=== PATIENT | male | born 1960 | race Caucasian/White ===

== ENCOUNTER 2016-11-20 19:19 | Emergency (ER) | payer MEDICAID, OTHER ==
[~2016-11-20] VITALS: Ht 160 cm; Wt 54.5 kg
[2016-11-20 19:39] VITALS: Ht 160 cm; Wt 54.5 kg
[2016-11-20] MEDS ORDERED: PANTOPRAZOLE 40 MG INJ IV STA (20:24)
[2016-11-20] MEDS ORDERED: ONDANSETRON 4 MG INJ IV STA (20:24)
[2016-11-20] MEDS ORDERED: LORAZEPAM 2 MG INJ IV ONE ×2 (20:30→22:30)
[2016-11-20 20:39] LABS: ABNORMAL IP MESSAGE 1; BASOPHIL # 0.1 10^3/ul (0.0-0.1); BASOPHILS % 1.4 % (0.0-2.0); EOSINOPHILS % 0.2 % (0.0-7.0); HEMATOCRIT 38.8 % (42.0-52.0); HEMOGLOBIN 13.6 g/dl (14.0-18.0); LYMPHOCYTES # 0.4 10^3/ul (0.8-2.9); LYMPHOCYTES % 6.9 % (15.0-51.0); MEAN CORPUSCULAR HEMOGLOBIN 33.7 pg (29.0-33.0); MEAN CORPUSCULAR HGB CONC 35.1 g/dl (32.0-37.0); MEAN CORPUSCULAR VOLUME 96.3 fl (82.0-101.0); MEAN PLATELET VOLUME 10.7 fl (7.4-10.4); MONOCYTE # 0.5 10^3/ul (0.3-0.9); MONOCYTES % 9.1 % (0.0-11.0); NEUTROPHIL # 4.2 10^3/ul (1.6-7.5); NEUTROPHILS % 82.2 % (39.0-77.0); PLATELET COUNT 66 10^3/UL (140-415); POSITIVE DIFF @See below; RED BLOOD COUNT 4.03 10^6/ul (4.70-6.10); RED CELL DISTRIBUTION WIDTH 14.8 % (11.5-14.5); WHITE BLOOD COUNT 5.1 10^3/ul (4.8-10.8)
[2016-11-20 20:43] LABS: INR 1.06; PROTIME 13.8 Sec (12.2-14.2); PT RATIO 1.1
[2016-11-20 20:44] LABS: PARTIAL THROMBOPLASTIN TIME 30.9 Sec (25.0-35.0)
[2016-11-20 20:48] LABS: ALANINE AMINOTRANSFERASE 80 IU/L (13-69); ALBUMIN 4.3 g/dl (3.3-4.9); ALBUMIN/GLOBULIN RATIO 0.89; ALKALINE PHOSPHATASE 349 IU/L (42-121); ANION GAP 16 (8-16); ASPARTATE AMINO TRANSFERASE 236 IU/L (15-46); BLOOD UREA NITROGEN 5 mg/dl (7-20); CALCIUM 8.9 mg/dl (8.4-10.2); CARBON DIOXIDE 24 mmol/L (21-31); CHLORIDE 94 mmol/L (97-110); CREATININE 0.52 mg/dl (0.61-1.24); GLUCOSE 158 mg/dl (70-220); POTASSIUM 3.3 mmol/L (3.5-5.1); SODIUM 131 mmol/L (135-144); TOTAL PROTEIN 9.1 g/dl (6.1-8.1)
[2016-11-20 21:01] LABS: TROPONIN-I < 0.012 ng/ml (0.00-0.12)
--- NOTE | 2016-11-20 21:28 | RADRPT ---
PROCEDURE: XR Chest 1 View. CLINICAL INDICATION: Chest pain, possible upper GI bleed. TECHNIQUE: AP view of the chest was obtained. COMPARISON: May 31, 2013 FINDINGS: The heart size is within normal limits. Calcified atherosclerosis is noted in the aorta. Elevated r ight hemidiaphragm is identified. No consolidations are identified. No pneumothorax is seen. [place] structures are intact. IMPRESSION: Calcified atherosclerosis in the aorta. Elevated right hemidiaphragm. Clear lungs. RPTAT: AA .Ashish Hernandez MD, MD Date Time Electronically viewed and signed by .Ashish Hernandez MD, on 11/20/2016 21:28 .P/
[2016-11-20] MEDS ORDERED: POTASSIUM CHLORIDE 20 MEQ POWDER FOR ORAL SOLN PO ONE (22:30)
[2016-11-20 22:33] VITALS: TEMP 98.3
[2016-11-20] MEDS ORDERED: SOD CHLORIDE 0.9% 1,000 ML IV STA (23:20)
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
[2016-11-21] MEDS ORDERED: FAMO-96 PO (00:30)
[2016-11-21] MEDS ORDERED: CHLO25CA9 PO (00:30)
[2016-11-21] MEDS ORDERED: ONDA4TAB14 PO (00:30)
[2016-11-21 04:36] VITALS: BP 120/84; PULSE 89; RESP 22
== END 2016-11-21 04:40 | disposition home or self-care (01) ==
LOC: E/R 19:19
DX: R07.89 Other chest pain (principal); K92.0 Hematemesis; F10.230 Alcohol dependence with withdrawal, uncomplicated; Z87.891 Personal history of nicotine dependence
CPT/HCPCS: 36415; 71010; 80053; 83690; 84484; 85025; 85610; 85730; 86850; 86900; 86901; 93005; 96374; 96375; 96376; C9113; J2060; J2405; J7030; Z7502; Z7610

== ENCOUNTER 2017-05-22 18:26 | Emergency (ER) | END 2017-05-22 19:03 | disposition home or self-care (01) ==

== ENCOUNTER 2018-01-04 16:16 | Emergency (ER) | END 2018-01-04 21:05 | disposition home or self-care (01) ==

== ENCOUNTER 2018-01-05 09:40 | Emergency (ER) | END 2018-01-05 19:34 | disposition home or self-care (01) ==

== ENCOUNTER 2018-02-27 12:20 | Inpatient (IN) | END 2018-03-03 11:52 | disposition home or self-care (01) | DRG 872 ==

== ENCOUNTER 2018-03-15 08:07 | Emergency (ER) | payer MEDICAID ==
[~2018-03-15] VITALS: Wt 52.1 kg
[2018-03-15] MEDS ORDERED: ONDANSETRON 4 MG INJ IV STA (08:22)
[2018-03-15] MEDS ORDERED: morphine 4 MG/ML VIAL IV STA (08:22)
[2018-03-15] MEDS ORDERED: ONDA4TAB14 PO (10:18)
[2018-03-15] MEDS ORDERED: IBUP-1542 PO (10:18)
--- NOTE | 2018-03-15 10:21 | ERD ---
ER Documentation Chief Complaint Chief Complaint AP WITH HEADACHE AND FEVER X 3 DAYS HPI Patient is a 57-year-old male who presents with abdominal pain. He has had abdominal pain for the past 3 days. He also complains of fever and headache. The fever was subjective as he did not take it himself at home. He complains of left leg pain as well. The pain in his abdomen has been diffuse and constant. He has had no treatment as of yet. The patient has a history of the similar type pain 3-4 weeks ago. Upon review of old medical records this is the patient's 13th visit to the ER since 2008. Review of the emergency department information exchange system shows visits to 2 separate emergency departments. He has a primary doctor but does not know the name. ROS All systems reviewed and are negative except as per history of present illness. Medications Home Meds Active Scripts Ondansetron (Ondansetron Odt) 4 Mg Tab.rapdis, 4 MG PO Q6H PRN for NAUSEA AND/OR VOMITING, #10 TAB Prov:VICTOR M ARAUJO MD 03/15/18 Ibuprofen* (Motrin*) 600 Mg Tab, 600 MG PO Q6H PRN for PAIN AND OR ELEVATED TEMP, #30 TAB Prov:VICTOR M ARAUJO MD 03/15/18 Allergies Allergies: Coded Allergies: No Known Allergy (Unverified , 02/27/18) PMhx/Soc History of Surgery: Yes (HERNIA REPAIR,RIGHT SIDE.LEFT EYE SURGERY) Anesthesia Reaction: Yes Hx Neurological Disorder: No Hx Respiratory Disorders: No Hx Cardiac Disorders: No Hx Psychiatric Problems: No Hx Miscellaneous Medical Probl: Yes (ALCOHOL ABUSE, LIVER CIRRHOSIS) Hx Alcohol Use: Yes Hx Substance Use: No Hx Tobacco Use: No Smoking Status: Never smoker FmHx Family History: No diabetes Physical Exam Vitals Vital Signs Date Temp Pulse Resp B/P (MAP) Pulse Ox O2 O2 Flow FiO2 Time Delivery Rate 03/15/18 90 14 117/78 99 Room Air 10:28 (91) 03/15/18 93 124/85 100 Room Air 08:48 (98) 03/15/18 98.5 102 16 145/80 99 08:12 (101) Physical Exam Const: No acute distress Head: Atraumatic Eyes: Normal Conjunctiva ENT: Normal External Ears, Nose and Mouth. Neck: Full range of motion. No meningismus. Resp: Clear to auscultation bilaterally Cardio: Regular rate and rhythm, no murmurs Abd: Soft, epigastric tenderness to palpation without rebound or guarding Skin: No petechiae or rashes Back: No midline or flank tenderness Ext: No cyanosis, or edema Neur: Awake and alert Psych: Normal Mood and Affect Result Diagram: 03/15/18 0825 03/15/18 0825 Results 24 hrs Laboratory Tests Test 03/15/18 08:25 White Blood Count 3.4 10^3/ul Red Blood Count 3.53 10^6/ul Hemoglobin 11.1 g/dl Hematocrit 32.7 % Mean Corpuscular Volume 92.6 fl Mean Corpuscular Hemoglobin 31.4 pg Mean Corpuscular Hemoglobin Concent 33.9 g/dl Red Cell Distribution Width 15.8 % Platelet Count 57 10^3/UL Mean Platelet Volume 12.2 fl Immature Granulocytes % 0.300 % Neutrophils % 52.9 % Lymphocytes % 31.6 % Monocytes % 11.3 % Eosinophils % 2.4 % Basophils % 1.5 % Nucleated Red Blood Cells % 0.0 /100WBC Immature Granulocytes # 0.010 10^3/ul Neutrophils # 1.8 10^3/ul Lymphocytes # 1.1 10^3/ul Monocytes # 0.4 10^3/ul Eosinophils # 0.1 10^3/ul Basophils # 0.1 10^3/ul Nucleated Red Blood Cells # 0.0 10^3/ul Urine Color YELLOW Urine Clarity CLEAR Urine pH 7.0 Urine Specific [place] 1.014 Urine Ketones NEGATIVE mg/dL Urine Nitrite NEGATIVE mg/dL Urine Bilirubin NEGATIVE mg/dL Urine Urobilinogen 2+ mg/dL Urine Leukocyte Esterase NEGATIVE Raul/ul Urine Microscopic RBC 3 /HPF Urine Microscopic WBC 0 /HPF Urine Hemoglobin 1+ mg/dL Urine Glucose NEGATIVE mg/dL Urine Total Protein NEGATIVE mg/dl Sodium Level 139 mmol/L Potassium Level 3.4 mmol/L Chloride Level 107 mmol/L Carbon Dioxide Level 21 mmol/L Anion Gap 11 Blood Urea Nitrogen 7 mg/dl Creatinine 0.44 mg/dl Est Glomerular Filtrat Rate mL/min > 60 mL/min Glucose Level 114 mg/dl Calcium Level 8.9 mg/dl Total Bilirubin 1.7 mg/dl Direct Bilirubin 0.00 mg/dl Indirect Bilirubin 1.7 mg/dl Aspartate Amino Transf (AST/SGOT) 169 IU/L Alanine Aminotransferase (ALT/SGPT) 42 IU/L Alkaline Phosphatase 415 IU/L Troponin I < 0.012 ng/ml Total Protein 9.2 g/dl Albumin 3.7 g/dl Globulin 5.50 g/dl Albumin/Globulin Ratio 0.67 Lipase 147 U/L Current Medications Medications Dose Sig/Jayesh Start Time Status Last (Trade) Ordered Route PRN Stop Time Admin Dose Reason Admin Morphine 4 mg ONCE STAT 03/15/18 DC 03/15/18 Sulfate IV 08:22 03/15/18 08:38 (morphine) 08:23 Ondansetron 4 mg ONCE STAT 03/15/18 DC 03/15/18 HCl (Zofran IV 08:22 03/15/18 08:39 Inj) 08:23 Procedures/MDM EKG read by me: Rate/Rhythm: Regular rate and rhythm at a rate of 95 Intervals: Normal Impression: No evidence of ischemia or arrhythmia Ultrasound of the gallbladder normal per radiology. Patient is a 57-year-old male who presents with abdominal pain. Laboratory studies were unremarkable and ultrasound of the gallbladder was negative. EKG shows no signs of ischemia or arrhythmia. At this point I doubt appendicitis, cholecystitis, pancreatitis, or bowel obstruction. I believe outpatient management is appropriate at this time but the patient will need close follow-up with his primary doctor within 24-48 hours. The patient can return for any worsening symptoms. He was given copies of laboratory studies and ultrasound report prior to discharge. Departure Diagnosis: Primary Impression: Abdominal pain Abdominal location: epigastric Qualified Codes: R10.13 - Epigastric pain Condition: Fair Patient Instructions: Abdominal Pain Referrals: Your doctor Additional Instructions: Llame al doctor MAANA y alissa carol MIC PARA DENTRO DE 1-2 BENSON.Dgale a la secretaria que nosotros le instruimos hacer esta mic.Avise o llame si parson condicin se empeora antes de la mic. Regresa aqui si peor o no mejor. VICTOR M ARAUJO MD Mar 15, 2018 10:21
[2018-03-15 10:28] VITALS: BP 117/78; PULSE 90; RESP 14
== END 2018-03-15 10:45 | disposition home or self-care (01) ==
LOC: E/R 08:07
DX: R10.13 Epigastric pain (principal)
CPT/HCPCS: 36415; 76705; 80053; 81001; 83690; 84484; 85025; 93005; 96374; 96375; J2270; J2405; Z7502

== ENCOUNTER 2018-04-10 09:22 | Emergency (ER) | payer MEDICAID ==
[~2018-04-10] VITALS: Ht 152.4 cm; Wt 55.6 kg
[~2018-04-10 09:22] MED LIST: IBUP-1542 PO; ONDA4TAB14 PO
[2018-04-10 09:25] VITALS: BP 143/78; PULSE 116; RESP 18; Ht 152.4 cm; Wt 55.6 kg
[2018-04-10] MEDS ORDERED: SODI126M NASAL (09:52)
[2018-04-10] MEDS ORDERED: IBUP-1542 PO (09:52)
[2018-04-10] MEDS ORDERED: GUAI-637 PO (09:52)
--- NOTE | 2018-04-10 10:01 | ERD ---
ER Documentation Chief Complaint Chief Complaint cough & generalize body aches HPI 44-year-old male complaining of cough and body ache times 3 days. Patient states that he had a fever of 102 degrees at the onset of symptoms. But the fever has since resolved. He took Tylenol this morning, but did not improve his body ache. Patient reports one episode of vomiting and 3 episodes diarrhea since the onset of the symptoms. He had influenza vaccine in February 2018 while he was hospitalized. Patient has history of chronic epigastric pain, and reports epigastric pain for 4-5 days ago, before the onset of his current symptoms. But the abdominal pain has since resolved. Denies shortness of hamida th. Denies other past medical history. Patient states that he has stopped drinking alcohol for the past 6 months. ROS All systems reviewed and are negative except as per history of present illness. Medications Home Meds Active Scripts Guaifenesin* (Robitussin*) 100 Mg/5 Ml Syrup, 200 MG PO Q4H PRN for COUGH, #120 ML Prov:SYLVAIN SLOAN. COMMERCIAL DRIVER[employer]S LICENSE DRIVER 04/10/18 Sodium Chloride (Saline Nasal Mist) 126 Ml Mist, 2 SPRAY NASAL Q2H PRN for NASAL CONGESTION, #1 BOTTLE Prov:SYLVAIN SLOAN. COMMERCIAL DRIVER'S LICENSE DRIVER 04/10/18 Ibuprofen* (Motrin*) 600 Mg Tab, 600 MG PO Q6H PRN for PAIN AND OR ELEVATED TEMP, #30 TAB Prov:SYLVAIN SLOAN. COMMERCIAL DRIVER'S LICENSE DRIVER 04/10/18 Ondansetron (Ondansetron Odt) 4 Mg Tab.rapdis, 4 MG PO Q6H PRN for NAUSEA AND/OR VOMITING, #10 TAB Prov:VICTOR M ARAUJO MD 03/15/18 Ibuprofen* (Motrin*) 600 Mg Tab, 600 MG PO Q6H PRN for PAIN AND OR ELEVATED TEMP, #30 TAB Prov:VICTOR M ARAUJO MD 03/15/18 Allergies Allergies: Coded Allergies: No Known Allergy (Unverified , 02/27/18) PMhx/Soc History of Surgery: Yes (HERNIA REPAIR,RIGHT SIDE.LEFT EYE SURGERY) Anesthesia Reaction: Yes Hx Neurological Disorder: No Hx Respiratory Disorders: No Hx Cardiac Disorders: No Hx Psychiatric Problems: No Hx Miscellaneous Medical Probl: Yes (ALCOHOL ABUSE, LIVER CIRRHOSIS) Hx Alcohol Use: Yes Hx Substance Use: No Hx Tobacco Use: No Physical Exam Vitals Vital Signs Date Temp Pulse Resp B/P (MAP) Pulse Ox O2 O2 Flow FiO2 Time Delivery Rate 04/10/18 99.0 116 18 143/78 99 09:25 (99) Physical Exam General: Well-developed, disheveled appearance, conscious and coherent, in no distress Skin: Warm and dry without rash, good texture and turgor Head: Normocephalic without evidence of trauma Nose/Face: Nasal congestion Mouth/throat: Mucous membranes are moist. Posterior pharynx clear without erythema or exudates Neck: Supple without meningismus or adenopathy. Carotids are equal. Trachea midline. No bruits or JVD Chest: Normal AP diameter. Good expansion without retractions. Nontender. Lungs are clear to auscultate bilaterally with good tidal volume Heart: Regular rate and rhythm. No murmur, rub, or gallops heard Abdomen: Soft, mild epigastric tenderness without masses, guarding, or rebound. Bowel sounds are active. No hepatosplenomegaly Back: Without spinal or CVA tenderness xtremities: Full range of motion. Good strength bilaterally. No erythema, ecchymosis, or edema. Peripheral pulses are intact. Sensation intact Neuro: Alert and oriented 4, GCS 15. Procedures/MDM Patient is afebrile, in no respiratory distress. Lungs are clear to auscultate. I doubt that patient has pneumonia or bronchitis. Patient has mild epigastric tenderness on palpation. I doubt acute appendicitis, cholecystitis, bowel obstruction or other acute abdomen. Patient's symptoms is consistent with that of viral syndrome, although I cannot completely rule out influenza. Patient does not have any active vomiting, is able to maintain by mouth fluid intake. Patient does not show any sign of dehydration. Patient appears to be disheveled, upon questioning him as is being homeless. Social work consult ordered to provide patient with homeless resources before discharge. Patient appears well, stable for discharge and outpatient management. Medical decision making shared with patient and family. Education provided to patient and family. Patient and family expressed understanding of the plan. Medications on discharge: Ibuprofen, saline nasal mist, Robitussin. Follow-up: Primary care provider in 2-3 days or return to ED if worse. Disclaimer: Inadvertent spelling and grammatical errors are likely due to EHR/dictation software use and do not reflect on the overall quality of patient care. Also, please note that the electronic time recorded on this note does not necessarily reflect the actual time of the patient encounter. Departure Diagnosis: Primary Impression: Influenza-like symptoms Condition: Stable Patient Instructions: Influenza (Adult) Referrals: [facility] YOU HAVE RECEIVED A MEDICAL SCREENING EXAM AND THE RESULTS INDICATE THAT YOU DO NOT HAVE A CONDITION THAT REQUIRES URGENT TREATMENT IN THE EMERGENCY DEPARTMENT. FURTHER EVALUATION AND TREATMENT OF YOUR CONDITION CAN WAIT UNTIL YOU ARE SEEN IN YOUR DOCTORS OFFICE WITHIN THE NEXT 1-2 DAYS. IT IS YOUR RESPONSIBILITY TO MAKE AN APPOINTMENT FOR FOLOW-UP CARE. IF YOU HAVE A PRIMARY DOCTOR --you should call your primary doctor and schedule an appointment IF YOU DO NOT HAVE A PRIMARY DOCTOR YOU CAN CALL OUR PHYSICIAN REFERRAL HOTLINE AT IF YOU CAN NOT AFFORD TO SEE A PHYSICIAN YOU CAN CHOSE FROM THE FOLLOWING [facility] [address] [facility]. [facility] [address] [facility] [facility] [address] [facility] [facility] [address] [facility]. [facility] [address] [facility] [facility]. [address] Additional Instructions: Call your primary care doctor TOMORROW for an appointment during the next 2-3 days.See the doctor sooner or return here if your condition worsens before your appointment time. SYLVAIN SLOAN NP Apr 10, 2018 10:01
--- NOTE | 2018-04-10 10:29 | NUR ---
SS Note: Consult Pt is a 57YO male seen in ER fast track for flu-like symptoms. HOSPITAL INSURANCE CLERK received consult to address homeless discharge. Pt is A&O x 4, is currently wearing brand new sweatshirt, sweatpants, baseball cap, socks and shoes appearing to have been provided by ER. Pt states he was living with a friend on their couch, but friend is currently not in town. Pt states he has been homeless since being evicted from apartment 3 months ago d/t not being able to afford the rent. Pt states he has a daughter and son in the [place] area, but he is not able to go there and they do not appear to be a a source of support for him. Pt receives [employer] and food stamps. Pt has cell phone with him, as well as bag of belongings that appear dry and well-kept. Pt is familiar with [facility] and [facility]. HOSPITAL INSURANCE CLERK provided pt with winter residential list as well as bus token. Pt has been given prescriptions and follow-up medical plan. HOSPITAL INSURANCE CLERK to remain available as needed.
== END 2018-04-10 10:26 | disposition home or self-care (01) ==
LOC: FTE 09:22
DX: R05 Cough (principal); R40.2412 Glasgow coma scale score 13-15, at arrival to emergency department; R52 Pain, unspecified
CPT/HCPCS: 99283

== ENCOUNTER 2018-04-28 16:25 | Emergency (ER) | payer MEDICAID ==
[~2018-04-28] VITALS: Wt 56.5 kg
[~2018-04-28 16:25] MED LIST changes: +GUAI-637 PO; +SODI126M NASAL
[2018-04-28] MEDS ORDERED: KETOROLAC 30 MG INJ IV STA (17:51)
[2018-04-28] MEDS ORDERED: SOD CHLORIDE 0.9% 1,000 ML IV STA (17:51)
[2018-04-28 20:47] VITALS: BP 122/74; PULSE 101; RESP 16
[2018-04-28] MEDS ORDERED: IBUP-1982 PO (22:09)
[2018-04-28] MEDS ORDERED: ONDANSETRON 4 MG INJ IV STA (22:19)
[2018-04-28] MEDS ORDERED: HYDROmorphONE 1 MG/ML SYG IV STA (22:19)
[2018-04-28] MEDS ORDERED: HYDR-3980 PO (22:20)
[2018-04-28] MEDS ORDERED: IBUP800T48 PO (22:20)
--- NOTE | 2018-04-28 22:23 | ERD ---
ER Documentation Chief Complaint Chief Complaint BIB SELF, CC: GENERALIZED BODY ACHES FOR 4 DAYS, COUGHING HPI This is a 57-year-old male who says he just returned on a long drive from [place] where he was working. He said when he got home yesterday he started getting diffuse myalgias and arthralgias/body pain. He says he had a bit of a runny nose and slight dry cough but no documented fever no GI symptoms no headache photophobia. She is a feels general malaise. No lack of appetite ROS All systems reviewed and are negative except as per history of present illness. Medications Home Meds Active Scripts Hydrocodone/Acetaminophen ([place] 10-325 Tablet) 1 Each Tablet, 1 TAB PO Q6H PRN for PAIN, #7 TAB Prov:DOMINIQUE FAROOQ DO 04/28/18 Ibuprofen* (Motrin*) 800 Mg Tab, 800 MG PO Q6H PRN for PAIN AND OR ELEVATED TEMP, #30 TAB Prov:DOMINIQUE FAROOQ DO 04/28/18 Reported Medications Ibuprofen* (Ibuprofen*) 200 Mg Capsule, 200 MG PO QID PRN for PAIN, CAP 04/28/18 Discontinued Scripts Guaifenesin* (Robitussin*) 100 Mg/5 Ml Syrup, 200 MG PO Q4H PRN for COUGH, #120 ML Prov:SYLVAIN SLOAN PUBLIC POLICY COORDINATOR 04/10/18 Sodium Chloride (Saline Nasal Mist) 126 Ml Mist, 2 SPRAY NASAL Q2H PRN for NASAL CONGESTION, #1 BOTTLE Prov:SYLVAIN SLOAN PUBLIC POLICY COORDINATOR 04/10/18 Ibuprofen* (Motrin*) 600 Mg Tab, 600 MG PO Q6H PRN for PAIN AND OR ELEVATED TEMP, #30 TAB Prov:SYLVAIN SLOAN PUBLIC POLICY COORDINATOR 04/10/18 Ondansetron (Ondansetron Odt) 4 Mg Tab.rapdis, 4 MG PO Q6H PRN for NAUSEA AND/OR VOMITING, #10 TAB Prov:VICTOR M ARAUJO MD 03/15/18 Ibuprofen* (Motrin*) 600 Mg Tab, 600 MG PO Q6H PRN for PAIN AND OR ELEVATED TEMP, #30 TAB Prov:VICTOR M ARAUJO MD 03/15/18 Allergies Allergies: Coded Allergies: No Known Allergy (Unverified , 04/28/18) PMhx/Soc History of Surgery: Yes (HERNIA REPAIR,RIGHT SIDE.LEFT EYE SURGERY) Anesthesia Reaction: Yes Hx Neurological Disorder: No Hx Respiratory Disorders: No Hx Cardiac Disorders: No Hx Psychiatric Problems: No Hx Miscellaneous Medical Probl: Yes (ALCOHOL ABUSE, LIVER CIRRHOSIS) Hx Alcohol Use: Yes Hx Substance Use: No Hx Tobacco Use: No Smoking Status: Unknown if ever smoked FmHx Family History: No coronary disease Physical Exam Vitals Vital Signs Date Temp Pulse Resp B/P (MAP) Pulse Ox O2 O2 Flow FiO2 Time Delivery Rate 04/28/18 101 16 122/74 97 Room Air 20:47 (90) 04/28/18 Nasal 2 18:15 Cannula 04/28/18 102 20 125/74 99 Room Air 17:35 (91) 04/28/18 98.2 112 19 129/70 100 16:29 (89) Physical Exam Const: Well-developed, well-nourished Head: Atraumatic, normocephalic Eyes: Normal Conjunctiva, PERRLA, EOMI, normal sclera, no nystagmus ENT: Normal External Ears, Nose and Mouth, moist mucus membranes. Neck: Full range of motion. No meningismus, no lymphadenopathy. Resp: Clear to auscultation bilaterally, no wheezing, rhonchi, rales Cardio: Regular rate and rhythm, no murmurs, S1 S2 present Abd: Soft, non tender x 4, non distended. Normal bowel sounds, no guarding or rebound, no pulsitile abdominal masses or bruits Skin: No petechiae or rashes, no ecchymosis , no maculopapular rash Back: No midline or flank tenderness Ext: No cyanosis, or edema, FROM x 4, normal inspection, neurovascularly intact x 4 Neur: Awake and alert, STR 5/5 x 4, sensation intact x 4, no focal findings, cerebellum intact Psych: Normal Mood and Affect Result Diagram: 04/28/18174104/28/181741 Results 24 hrs Laboratory Tests Test 04/28/18 17:42 White Blood Count 4.9 10^3/ul Red Blood Count 3.22 10^6/ul Hemoglobin 9.9 g/dl Hematocrit 29.7 % Mean Corpuscular Volume 92.2 fl Mean Corpuscular Hemoglobin 30.7 pg Mean Corpuscular Hemoglobin Concent 33.3 g/dl Red Cell Distribution Width 20.3 % Platelet Count 75 10^3/UL Mean Platelet Volume 9.3 fl Immature Granulocytes % 0.200 % Neutrophils % % Segmented Neutrophils % (Manual) 64 % Lymphocytes % % Lymphocytes % (Manual) 24 % Monocytes % % Monocytes % (Manual) 7 % Eosinophils % % Eosinophils % (Manual) 3 % Basophils % % Basophils % (Manual) 2 % Nucleated Red Blood Cells % 0.0 /100WBC Immature Granulocytes # 0.010 10^3/ul Neutrophils # 10^3/ul Lymphocytes (Manual) 1.1 10^3/ul Lymphocytes # 10^3/ul Monocytes # 10^3/ul Monocytes # (Manual) 0.3 10^3/ul Eosinophils # 10^3/ul Basophils # 10^3/ul Basophils # (Manual) 0.0 10^3/ul Nucleated Red Blood Cells # 10^3/ul Platelet Estimate NORMAL Giant Platelets 1 % Sodium Level 141 mmol/L Potassium Level 3.6 mmol/L Chloride Level 112 mmol/L Carbon Dioxide Level 24 mmol/L Anion Gap 5 Blood Urea Nitrogen 9 mg/dl Creatinine 0.56 mg/dl Est Glomerular Filtrat Rate mL/min > 60 mL/min Glucose Level 99 mg/dl Calcium Level 9.0 mg/dl Troponin I < 0.012 ng/ml Current Medications Medications Dose Sig/Jayesh Start Time Status Last (Trade) Ordered Route PRN Stop Time Admin Dose Reason Admin Sodium 1,000 ml @ Q1H STAT 04/28/18 DC 04/28/18 Chloride 1,000 mls/hr IV 17:51 18:17 04/28/18 18:50 Ketorolac 30 mg ONCE STAT 04/28/18 DC 04/28/18 Tromethamine IV 17:51 18:17 (Toradol) 04/28/18 17:53 1 mg ONCE STAT 04/28/18 Hydromorphone IV 22:19 HCl 04/28/18 22:20 (Dilaudid) Ondansetron 4 mg ONCE STAT 04/28/18 HCl (Zofran IV 22:19 Inj) 04/28/18 22:20 Procedures/MDM EKG: Rate/Rhythm: Normal sinus rhythm inverted T wave in lead III and aVF QRS, ST, QT: NORMAL NH, QRS, QT] Impression: Abnormal EKG Chest x-ray read by radiologist demonstrates no consolidative pulmonary infiltrate noted, no significant interval change from the previous study.. Patient's labs look relatively stable. He will be treated and discharged with treatment for a viral syndrome. Influenza is negative Departure Diagnosis: Primary Impression: Viral illness Condition: Stable Patient Instructions: Viral Syndrome (Adult) DOMINIQUE FAROOQ DO Apr 28, 2018 22:23
== END 2018-04-28 23:25 | disposition home or self-care (01) ==
LOC: FTE 16:25 → E/R 23:25
DX: B34.9 Viral infection, unspecified (principal); R07.9 Chest pain, unspecified
CPT/HCPCS: 36415; 71045; 80048; 84484; 85025; 87400; 93005; 96374; 96375; J1170; J1885; J2405; J7030; Z7502

== ENCOUNTER 2018-05-13 08:34 | Emergency (ER) | payer MEDICAID ==
[~2018-05-13] VITALS: Ht 152.4 cm; Wt 55.9 kg
[~2018-05-13 08:34] MED LIST changes: -GUAI-637 PO; +HYDR-3980 PO; -IBUP-1542 PO; +IBUP-1982 PO; +IBUP800T48 PO; -ONDA4TAB14 PO; -SODI126M NASAL
[2018-05-13 08:50] VITALS: Ht 152.4 cm; Wt 55.9 kg
[2018-05-13] MEDS ORDERED: KETOROLAC 30 MG INJ IM STA (11:01)
[2018-05-13] MEDS ORDERED: ACET-141 PO (12:21)
[2018-05-13] MEDS ORDERED: METH750T93 PO (12:21)
[2018-05-13] MEDS ORDERED: IBUP-1542 PO (12:21)
--- NOTE | 2018-05-13 12:22 | ERD ---
ER Documentation Chief Complaint Chief Complaint Complains of left shoulder pain x 2 days ROS All systems reviewed and are negative except as per history of present illness. Medications Home Meds Active Scripts Methocarbamol* (Robaxin*) 750 Mg Tablet, 750 MG PO TID PRN for MUSCLE SPASMS, #30 TAB Prov:SARA ALBRECHT DO 05/13/18 Ibuprofen* (Motrin*) 600 Mg Tab, 600 MG PO Q6H PRN for PAIN AND OR ELEVATED TEMP, #30 TAB Prov:SARA ALBRECHT DO 05/13/18 Acetaminophen* (Acetaminophen*) 500 MG Extra Strength Tablet, 500 MG PO Q4H PRN for PAIN AND OR ELEVATED TEMP, #30 TAB Prov:SARA ALBRECHT DO 05/13/18 Hydrocodone/Acetaminophen ([place] 10-325 Tablet) 1 Each Tablet, 1 TAB PO Q6H PRN for PAIN, #7 TAB Prov:DOMINIQUE FAROOQ DO 04/28/18 Ibuprofen* (Motrin*) 800 Mg Tab, 800 MG PO Q6H PRN for PAIN AND OR ELEVATED TEMP, #30 TAB Prov:DOMINIQUE FAROOQ DO 04/28/18 Reported Medications Ibuprofen* (Ibuprofen*) 200 Mg Capsule, 200 MG PO QID PRN for PAIN, CAP 04/28/18 Allergies Allergies: Coded Allergies: No Known Allergy (Unverified , 05/13/18) PMhx/Soc History of Surgery: Yes (HERNIA REPAIR,RIGHT SIDE.LEFT EYE SURGERY) Anesthesia Reaction: Yes Hx Neurological Disorder: No Hx Respiratory Disorders: No Hx Cardiac Disorders: No Hx Psychiatric Problems: No Hx Miscellaneous Medical Probl: Yes (ALCOHOL ABUSE, LIVER CIRRHOSIS) Hx Alcohol Use: Yes Hx Substance Use: No Hx Tobacco Use: No Smoking Status: Never smoker Physical Exam Vitals Vital Signs Date Temp Pulse Resp B/P (MAP) Pulse Ox O2 O2 Flow FiO2 Time Delivery Rate 05/13/18 98.9 82 18 123/74 100 Room Air 12:28 (90) 05/13/18 98.9 97 20 128/66 100 08:50 (86) Physical Exam Const: No acute distress Head: Atraumatic Eyes: Normal Conjunctiva ENT: Normal External Ears, Nose and Mouth. Neck: Full range of motion. No meningismus. Resp: Clear to auscultation bilaterally Cardio: Regular rate and rhythm, no murmurs Abd: Soft, non tender, non distended. Normal bowel sounds Skin: No petechiae or rashes Back: No midline or flank tenderness Ext: No cyanosis, or edema Neur: Awake and alert Psych: Normal Mood and Affect Results 24 hrs Current Medications Medications Dose Sig/Jayesh Start Time Status Last (Trade) Ordered Route PRN Stop Time Admin Dose Reason Admin Ketorolac 30 mg ONCE STAT 05/13/18 DC 05/13/18 Tromethamine IM 11:01 05/13/18 11:05 (Toradol) 11:02 Departure Diagnosis: Primary Impression: Shoulder injury Encounter type: initial encounter Laterality: left Qualified Codes: S49.92XA - Unspecified injury of left shoulder and upper arm, initial encounter Condition: Fair Patient Instructions: Shoulder Problems Referrals: [facility] YOU HAVE RECEIVED A MEDICAL SCREENING EXAM AND THE RESULTS INDICATE THAT YOU DO NOT HAVE A CONDITION THAT REQUIRES URGENT TREATMENT IN THE EMERGENCY DEPARTMENT. FURTHER EVALUATION AND TREATMENT OF YOUR CONDITION CAN WAIT UNTIL YOU ARE SEEN IN YOUR DOCTORS OFFICE WITHIN THE NEXT 1-2 DAYS. IT IS YOUR RESPONSIBILITY TO MAKE AN APPOINTMENT FOR FOLOW-UP CARE. IF YOU HAVE A PRIMARY DOCTOR --you should call your primary doctor and schedule an appointment IF YOU DO NOT HAVE A PRIMARY DOCTOR YOU CAN CALL OUR PHYSICIAN REFERRAL HOTLINE AT IF YOU CAN NOT AFFORD TO SEE A PHYSICIAN YOU CAN CHOSE FROM THE FOLLOWING [facility] [address] [facility]. [facility] [address] [facility] [address] [facility] [address] [facility] [facility] [address] [facility]. [facility]. [address] Additional Instructions: Llame al doctor MAANA y alissa carol MIC PARA DENTRO DE 1-2 BENSON.Dgale a la secretaria que nosotros le instruimos hacer esta mic.Avise o llame si parson condicin se empeora antes de la mic. Regresa aqui si peor o no mejor. SARA ALBRECHT DO May 13, 2018 12:22
[2018-05-13 12:28] VITALS: BP 123/74; PULSE 82; RESP 18
== END 2018-05-13 12:30 | disposition home or self-care (01) ==
LOC: FTE 08:34
DX: S49.92XA Unspecified injury of left shoulder and upper arm, initial encounter (principal); X58.XXXA Exposure to other specified factors, initial encounter; Y92.9 Unspecified place or not applicable
CPT/HCPCS: 73030; 96372; J1885; Z7502

== ENCOUNTER 2018-06-19 17:29 | Inpatient (IN) | payer MEDICAID ==
[~2018-06-19] VITALS: Ht 160 cm; Wt 53.8 kg
[~2018-06-19 17:29] MED LIST changes: +ACET-141 PO; +IBUP-1542 PO; +METH750T93 PO
--- NOTE | 2018-06-19 20:43 | ERD ---
ER Documentation Chief Complaint Chief Complaint LEFT NARE NOSEBLEED X 2 DAYS, C/O CHILLS. WEARING 4 JACKETS IN TRIAGE HPI This is a 58-year-old male who presents for 2 days of bleeding from his left nose, he has complains of generalized body aches, and chills. Denies abdominal pain, no nausea or vomiting. He has not had any chest pain or shortness of breath. He has no recent history of trauma. There are no alleviating or agg ravating factors. He also has history of alcoholic cirrhosis, he has received transfusions in the past. ROS All systems reviewed and are negative except as per history of present illness. Medications Home Meds Active Scripts Methocarbamol* (Robaxin*) 750 Mg Tablet, 750 MG PO TID PRN for MUSCLE SPASMS, #30 TAB Prov:SARA ALBRECHT DO 05/13/18 Ibuprofen* (Motrin*) 600 Mg Tab, 600 MG PO Q6H PRN for PAIN AND OR ELEVATED TEMP, #30 TAB Prov:SARA ALBRECHT DO 05/13/18 Acetaminophen* (Acetaminophen*) 500 MG Extra Strength Tablet, 500 MG PO Q4H PRN for PAIN AND OR ELEVATED TEMP, #30 TAB Prov:SARA ALBRECHT DO 05/13/18 Hydrocodone/Acetaminophen ([place] 10-325 Tablet) 1 Each Tablet, 1 TAB PO Q6H PRN for PAIN, #7 TAB Prov:DOMINIQUE FAROOQ DO 04/28/18 Ibuprofen* (Motrin*) 800 Mg Tab, 800 MG PO Q6H PRN for PAIN AND OR ELEVATED TEMP, #30 TAB Prov:DOMINIQUE FAROOQ DO 04/28/18 Reported Medications Ibuprofen* (Ibuprofen*) 200 Mg Capsule, 200 MG PO QID PRN for PAIN, CAP 04/28/18 Allergies Allergies: Coded Allergies: No Known Allergy (Unverified , 05/13/18) PMhx/Soc History of Surgery: Yes (HERNIA REPAIR,RIGHT SIDE.LEFT EYE SURGERY) Anesthesia Reaction: Yes Hx Neurological Disorder: No Hx Respiratory Disorders: No Hx Cardiac Disorders: No Hx Psychiatric Problems: No Hx Miscellaneous Medical Probl: Yes (ALCOHOL ABUSE, LIVER CIRRHOSIS) Hx Alcohol Use: Yes Hx Substance Use: No Hx Tobacco Use: No Physical Exam Vitals Vital Signs Date Temp Pulse Resp B/P (MAP) Pulse Ox O2 O2 Flow FiO2 Time Delivery Rate 06/19/18 100.0 109 18 111/59 98 17:37 (76) Physical Exam Const: Patient sitting in chair, in no distress, with tissue in left nare. Head: Atraumatic Eyes: Normal Conjunctiva ENT: Normal External Ears, Nose and Mouth. There is bleeding noted that is dry in the left nare Neck: Full range of motion. No meningismus. Resp: Clear to auscultation bilaterally Cardio: Regular rate and rhythm, no murmurs Abd: Soft, non tender, non distended. Normal bowel sounds Skin: No petechiae or rashes Back: No midline or flank tenderness Ext: No cyanosis, or edema Neur: Awake and alert Psych: Normal Mood and Affect Result Diagram: 06/19/18204606/19/182046 Results 24 hrs Laboratory Tests Test 06/19/18 20:47 06/19/18 21:30 White Blood Count 3.0 10^3/ul Red Blood Count 3.15 10^6/ul Hemoglobin 10.0 g/dl Hematocrit 29.5 % Mean Corpuscular Volume 93.7 fl Mean Corpuscular Hemoglobin 31.7 pg Mean Corpuscular Hemoglobin Concent 33.9 g/dl Red Cell Distribution Width 18.2 % Platelet Count 17 10^3/UL Mean Platelet Volume 10.5 fl Immature Granulocytes % 0.300 % Neutrophils % % Segmented Neutrophils % (Manual) 46 % Lymphocytes % % Lymphocytes % (Manual) 40 % Reactive Lymphocytes % (Manual) 2 % Monocytes % % Monocytes % (Manual) 5 % Eosinophils % % Eosinophils % (Manual) 6 % Basophils % % Basophils % (Manual) 1 % Nucleated Red Blood Cells % 0.0 /100WBC Immature Granulocytes # 0.010 10^3/ul Neutrophils # 10^3/ul Lymphocytes (Manual) 1.2 10^3/ul Lymphocytes # 10^3/ul Reactive Lymphocytes # 0.0 10^3/ul Monocytes # 10^3/ul Monocytes # (Manual) 0.1 10^3/ul Eosinophils # 10^3/ul Basophils # 10^3/ul Basophils # (Manual) 0.0 10^3/ul Nucleated Red Blood Cells # 10^3/ul Pathologist Review (Hematology) YES Platelet Estimate DECREASED Polychromasia 3+ Hypochromasia 1+ Poikilocytosis 1+ Anisocytosis 2+ Macrocytosis 2+ Prothrombin Time 17.2 Sec Prothrombin Time Ratio 1.3 INR International Normalized Ratio 1.39 Activated Partial Thromboplast Time 39.2 Sec Sodium Level 142 mmol/L Potassium Level 3.5 mmol/L Chloride Level 107 mmol/L Carbon Dioxide Level 24 mmol/L Anion Gap 11 Blood Urea Nitrogen 8 mg/dl Creatinine 0.59 mg/dl Est Glomerular Filtrat Rate mL/min > 60 mL/min Glucose Level 98 mg/dl Calcium Level 8.5 mg/dl Total Bilirubin 1.1 mg/dl Direct Bilirubin 0.00 mg/dl Indirect Bilirubin 1.1 mg/dl Aspartate Amino Transf (AST/SGOT) 160 IU/L Alanine Aminotransferase (ALT/SGPT) 42 IU/L Alkaline Phosphatase 311 IU/L Troponin I < 0.012 ng/ml Total Protein 8.2 g/dl Albumin 3.4 g/dl Globulin 4.80 g/dl Albumin/Globulin Ratio 0.70 POC Venous Lactate 1.6 mmol/L Current Medications Medications Dose Sig/Jayesh Start Time Status Last (Trade) Ordered Route PRN Stop Time Admin Dose Reason Admin Tranexamic 100 ml @ PRE-OP ONCE 06/19/18 DC Acid 200 mls/hr IV 21:00 06/19/18 21:00 Tranexamic 100 mg ONCE ONCE 06/19/18 Cancel Acid IRR 21:00 (Tranexamic 06/19/18 21:01 Acid) Tranexamic 100 mg ONCE ONCE 06/19/18 DC Acid IRR 21:00 (Tranexamic 06/19/18 21:01 Acid) Sodium 1,700 ml BOLUS OVER 2 06/19/18 DC 06/19/18 Chloride HOURS STAT 21:16 21:43 (NS) IV* 06/19/18 21:21 Cefepime HCl 50 ml @ ONCE STAT 06/19/18 06/19/18 100 mls/hr IVPB 21:25 21:43 06/19/18 21:54 Vancomycin 250 ml @ ONCE ONCE 06/19/18 06/19/18 HCl 125 mls/hr IVPB 21:30 21:44 06/19/18 23:29 Sodium 0 ml @ 0 Q0M ONCE 06/19/18 DC Chloride mls/hr IV 21:25 06/19/18 21:30 Procedures/MDM 58-year-old male presents for relation of body aches and epistaxis. His epistaxis is now resolved, however given his generalized body aches, labs ordered to evaluate for anginal equivalent, versus any signs of infection. These returned showing significant thrombocytopenia with a platelet count of 17, I also noted a low-grade temp of 100.0 orally, thus sepsis in the differential, the patient was given broad-spectrum antibiotics, and will be admitted. He did consent for platelet transfusion, given his platelet count was 17, in the setting of early fever, his bleeding is now controlled Accepting Care Team: Current data and ongoing care discussed. Primary: Juliano Consulting: None Outstanding Data: none Departure Diagnosis: Primary Impression: Epistaxis Additional Impression: Thrombocytopenia Condition: Stable MAYNOR VALENTINO MD Jun 19, 2018 20:43
[2018-06-19] MEDS ORDERED: TRANEXAMIC ACID 1GM/100ML(PMX) 100 ML IV ONE (21:00)
[2018-06-19] MEDS ORDERED: TRANEXAMIC ACID 1,000 MG/10 ML VIAL IRR ONE ×2 (21:00)
[2018-06-19] MEDS ORDERED: SODIUM CHLORIDE 0.9% 1L BAG IV* STA (21:16)
[2018-06-19] MEDS ORDERED: CEFEPIME 2GM/50 ML (PMX) 50 ML IVPB STA (21:25)
[2018-06-19] MEDS ORDERED: SOD CHLORIDE 0.9% 0 ML IV ONE (21:25)
[2018-06-19] MEDS ORDERED: VANCOMYCIN 1 GM (PMX) 250 ML IVPB ONE (21:30)
--- NOTE | 2018-06-19 23:08 | HP ---
Date/Time of Note Date/Time of Note DATE: 06/19/18 TIME: 23:08 Assessment/Plan VTE Prophylaxis SCD applied (from Nsg): Yes Pharmacological prophylaxis: NA/contraindicated Pharm contraindication: thrombocytopenia Lines/Catheters IV Catheter Type (from Nrsg): Saline Lock Assessment/Plan Assessment/Plan 1. Epistaxis: Spontaneous -Patient with a history of alcoholic liver cirrhosis and is pancytopenic with severe thrombocytopenia (platelets 17) -Patient denied platelet transfusion -Afrin spray -Monitor closely -ENT consult for ongoing issue 2. History of alcoholic liver cirrhosis: Decompensated -Will start him on propranolol -Abstinence from alcohol 3. Pancytopenia, with severe thrombocytopenia: Secondary to liver cirrhosis -Patient refusing platelet transfusion as mentioned in #1 -Monitor 4. Lower Back pain: no alarming sign -pain mgmt -consider imaging Result Diagram: 06/19/18204606/19/182046 Results 24hrs Laboratory Tests Test 06/19/18 20:47 06/19/18 21:30 06/19/18 22:15 06/19/18 22:16 White Blood Count 3.0 #L Red Blood Count 3.15 L Hemoglobin 10.0 L Hematocrit 29.5 L Mean Corpuscular 93.7 Volume Mean Corpuscular 31.7 Hemoglobin Mean Corpuscular 33.9 Hemoglobin Concent Red Cell 18.2 H Distribution Width Platelet Count 17 #*L Mean Platelet Volume 10.5 H Immature 0.300 Granulocytes % Neutrophils % Segmented 46 Neutrophils % (Manual) Lymphocytes % Lymphocytes % 40 (Manual) Reactive Lymphocytes 2 H % (Manual) Monocytes % Monocytes % (Manual) 5 Eosinophils % Eosinophils % 6 (Manual) Basophils % Basophils % (Manual) 1 Nucleated Red Blood 0.0 Cells % Immature 0.010 Granulocytes # Neutrophils # Lymphocytes (Manual) 1.2 Lymphocytes # Reactive Lymphocytes 0.0 # Monocytes # Monocytes # (Manual) 0.1 L Eosinophils # Basophils # Basophils # (Manual) 0.0 Nucleated Red Blood Cells # Pathologist YES Review (Hematology) Platelet Estimate DECREASED Polychromasia 3+ Hypochromasia 1+ Poikilocytosis 1+ Anisocytosis 2+ Macrocytosis 2+ Prothrombin Time 17.2 H Prothrombin Time 1.3 Ratio INR International 1.39 Normalized Ratio Activated 39.2 H Partial Thromboplast Time Sodium Level 142 Potassium Level 3.5 Chloride Level 107 Carbon Dioxide Level 24 Anion Gap 11 Blood Urea Nitrogen 8 Creatinine 0.59 L Est Glomerular > 60 Filtrat Rate mL/min Glucose Level 98 Calcium Level 8.5 Total Bilirubin 1.1 Direct Bilirubin 0.00 Indirect Bilirubin 1.1 Aspartate Amino 160 H Transf (AST/SGOT) Alanine 42 Aminotransferase (AL T/SGPT) Alkaline Phosphatase 311 H Troponin I < 0.012 Total Protein 8.2 H Albumin 3.4 Globulin 4.80 H Albumin/Globulin 0.70 Ratio POC Venous Lactate 1.6 Lactic Acid Level 1.6 Fibrinogen 153.0 L Plasma Fibrin <10 Degradation Products D-Dimer 1130.83 H D-Dimer Comment HPI/ROS Admit Date/Time Admit Date/Time Hx of Present Illness This is a 58-year-old male with a history of alcoholic liver cirrhosis who presented to ER complaining of nosebleed. He denied trauma or picking on his nose. When he presented to ER, he had a heart rate of 109 and a temperature of 100 otherwise BP stable. Labs shows a platelet of 17, WBC 3 and hemoglobin 10. PMH/Family/Social Past Medical History Past Surgical Hx: other (see hpi) Family History Significant Family History: no pertinent family hx Social History Alcohol Use: none Smoking Status: Never smoker Drug Use: none Exam Constitutional: other (no acute distress) Neck: supple, non-tender Respiratory: normal air movement Cardiovascular: nl pulses Gastrointestinal: soft Extremities: normal pulses Medications Current Medications Vancomycin HCl 250 ml @ 125 mls/hr ONCE ONCE IVPB Last administered on 06/19/18at 21:44; Admin Dose 125 MLS/HR; Start 06/19/18 at 21:30; Stop 06/19/18 at 23:29 Coded Allergies: No Known Allergy (Unverified , 05/13/18) Social History Smoking Status: Never smoker Exam/Review of Systems Vital Signs Vitals Vital Signs Date Temp Pulse Resp B/P (MAP) Pulse Ox O2 O2 Flow FiO2 Time Delivery Rate 06/19/18 100.0 109 18 111/59 98 17:37 (76) MARIA L AGUILERA MD Jun 19, 2018 23:08
[2018-06-19] MEDS ORDERED: ONDANSETRON 4 MG INJ IV PRN (23:30)
[2018-06-19] MEDS ORDERED: NACL 0.9% 3 ML SYG IV SCH (23:30)
[2018-06-19] MEDS ORDERED: OXYMETAZOLINE 0.05% 15 ML NAS SPRAY NASAL ONE (23:30)
[2018-06-19 23:33] VITALS: PULSE 107
[2018-06-20] VITALS (10 sets, daily range): BP systolic 116–142; BP diastolic 69–82; PULSE 77–99; RESP 18–20; Ht 160 cm; Wt 53.8 kg
[2018-06-20] MEDS: ACETAMINOPHEN 500 MG TAB PO PRN ×3 (00:32→15:45)
[2018-06-20] MEDS ORDERED: POTASSIUM CHLORIDE (SR) 20 MEQ TAB PO ONE (01:03)
[2018-06-20] MEDS ORDERED: PANTOPRAZOLE 40 MG INJ IV SCH (06:00)
[2018-06-20] MEDS ORDERED: HYDROCODONE/APAP (5/325) TAB PO PRN ×2 (07:30)
--- NOTE | 2018-06-20 14:41 | PN ---
Date/Time of Note Date/Time of Note DATE: 06/20/18 TIME: 14:38 Assessment/Plan VTE Prophylaxis Risk score (from Ns)>0 risk: 1 SCD applied (from Ns): Yes SCD contraindicated: low risk/ambulating Pharmacological prophylaxis: NA/contraindicated Pharm contraindication: bleeding Lines/Catheters IV [facility]from [facility] [place] Assessment/Plan Hospital Course Assessment and plan 1. Acute epistaxis, stable improved, observe 2. Severe thrombocytopenia, transfuse if there is active bleeding 3. Coagulopathy/pancytopenia due to liver disease or bone marrow suppression 4. Cirrhosis 5. Past alcohol, quit 6 months ago? 6. Depression? 7. Abd pain possible ascites, possible anasarca. Will obtain ultrasound. If fever presents may need paracentesis S: No further epistaxis. has tremors? Lwr abd pain/ diffuse. has lower extremity edema Objective: Vital signs stable Physical exam No pallor icterus adenopathy Regular no murmur gallop Clear Bs+ nontender mild distended no RRG Bilateral edema Result Diagram: 06/20/18 0653 06/20/18 0653 Results 24hrs Laboratory Tests Test 06/19/18 20:47 06/19/18 21:30 06/19/18 22:15 06/19/18 22:16 White Blood Count 3.0 #L Red Blood Count 3.15 L Hemoglobin 10.0 L Hematocrit 29.5 L Mean Corpuscular 93.7 Volume Mean Corpuscular 31.7 Hemoglobin Mean Corpuscular 33.9 Hemoglobin Concent Red Cell 18.2 H Distribution Width Platelet Count 17 #*L Mean Platelet Volume 10.5 H Immature 0.300 Granulocytes % Neutrophils % Segmented 46 Neutrophils % (Manual) Lymphocytes % Lymphocytes % 40 (Manual) Reactive Lymphocytes 2 H % (Manual) Monocytes % Monocytes % (Manual) 5 Eosinophils % Eosinophils % 6 (Manual) Basophils % Basophils % (Manual) 1 Nucleated Red Blood 0.0 Cells % Immature 0.010 Granulocytes # Neutrophils # Lymphocytes (Manual) 1.2 Lymphocytes # Reactive Lymphocytes 0.0 # Monocytes # Monocytes # (Manual) 0.1 L Eosinophils # Basophils # Basophils # (Manual) 0.0 Nucleated Red Blood Cells # Pathologist YES Review (Hematology) Platelet Estimate DECREASED Polychromasia 3+ Hypochromasia 1+ Poikilocytosis 1+ Anisocytosis 2+ Macrocytosis 2+ Prothrombin Time 17.2 H Prothrombin Time 1.3 Ratio INR International 1.39 Normalized Ratio Activated 39.2 H Partial Thromboplast Time Sodium Level 142 142 Potassium Level 3.5 3.3 L Chloride Level 107 111 H Carbon Dioxide Level 24 21 Anion Gap 11 10 Blood Urea Nitrogen 8 7 Creatinine 0.59 L 0.49 L Est Glomerular > 60 > 60 Filtrat Rate mL/min Glucose Level 98 94 Calcium Level 8.5 7.6 L Total Bilirubin 1.1 1.0 Direct Bilirubin 0.00 0.00 Indirect Bilirubin 1.1 1.0 Aspartate Amino 160 H 150 H Transf (AST/SGOT) Alanine 42 36 Aminotransferase (AL T/SGPT) Alkaline Phosphatase 311 H 299 H Troponin I < 0.012 Total Protein 8.2 H 7.4 Albumin 3.4 3.0 L Globulin 4.80 H 4.40 H Albumin/Globulin 0.70 0.68 Ratio POC Venous Lactate 1.6 Lactic Acid Level 1.6 Fibrinogen 153.0 L Plasma Fibrin <10 Degradation Products D-Dimer 1130.83 H D-Dimer Comment Lipase 273 Test 06/20/18 00:20 06/20/18 02:00 06/20/18 06:53 Urine Color STRAW Urine Clarity CLEAR Urine pH 7.0 Urine Specific 1.004 [place] Urine Ketones NEGATIVE Urine Nitrite NEGATIVE Urine Bilirubin NEGATIVE Urine Urobilinogen NEGATIVE Urine Leukocyte NEGATIVE Esterase Urine Microscopic 1 RBC Urine Microscopic 0 WBC Urine Hemoglobin 1+ H Urine Glucose NEGATIVE Urine Total Protein NEGATIVE Lactic Acid Level 1.9 White Blood Count 2.7 L Red Blood Count 3.24 L Hemoglobin 10.1 L Hematocrit 30.4 L Mean Corpuscular 93.8 Volume Mean Corpuscular 31.2 Hemoglobin Mean Corpuscular 33.2 Hemoglobin Concent Red Cell 17.6 H Distribution Width Platelet Count 17 *L Mean Platelet Volume Immature 0.400 Granulocytes % Neutrophils % 48.4 Lymphocytes % 33.7 Monocytes % 12.6 H Eosinophils % 3.4 Basophils % 1.5 Nucleated Red Blood 0.0 Cells % Immature 0.010 Granulocytes # Neutrophils # 1.3 L Lymphocytes # 0.9 Monocytes # 0.3 Eosinophils # 0.1 Basophils # 0.0 Nucleated Red Blood 0.0 Cells # Sodium Level 141 Potassium Level 3.2 L Chloride Level 107 Carbon Dioxide Level 22 Anion Gap 12 Blood Urea Nitrogen 5 L Creatinine 0.40 L Est Glomerular > 60 Filtrat Rate mL/min Glucose Level 98 Calcium Level 7.7 L Magnesium Level 1.3 L Total Bilirubin 2.2 H Direct Bilirubin 0.20 # Indirect Bilirubin 2.0 H Aspartate Amino 150 H Transf (AST/SGOT) Alanine 28 Aminotransferase (AL T/SGPT) Alkaline Phosphatase 310 H Total Protein 8.0 Albumin 3.3 Globulin 4.70 H Albumin/Globulin 0.70 Ratio Triglycerides Level 124 Cholesterol Level 163 LDL Cholesterol, 96 Calculated HDL Cholesterol 42 Cholesterol/HDL 3.8 Ratio Exam/Review of Systems Exam Vitals Vital Signs Date Temp Pulse Resp B/P (MAP) Pulse Ox O2 O2 Flow FiO2 Time Delivery Rate 06/20/18 89 12:06 06/20/18 98.5 20 118/71 97 11:19 (87) 06/20/18 Room Air 04:00 Intake and Output 06/19/18 06/19/18 06/20/18 1515:00 23:00 07:00 IntakeIntake Total 500 ml OutputOutput Total 1600 ml BalanceBalance -1100 ml Results Results 24hrs Laboratory Tests Test 06/19/18 20:47 06/19/18 21:30 06/19/18 22:15 06/19/18 22:16 White Blood Count 3.0 #L Red Blood Count 3.15 L Hemoglobin 10.0 L Hematocrit 29.5 L Mean Corpuscular 93.7 Volume Mean Corpuscular 31.7 Hemoglobin Mean Corpuscular 33.9 Hemoglobin Concent Red Cell 18.2 H Distribution Width Platelet Count 17 #*L Mean Platelet Volume 10.5 H Immature 0.300 Granulocytes % Neutrophils % Segmented 46 Neutrophils % (Manual) Lymphocytes % Lymphocytes % 40 (Manual) Reactive Lymphocytes 2 H % (Manual) Monocytes % Monocytes % (Manual) 5 Eosinophils % Eosinophils % 6 (Manual) Basophils % Basophils % (Manual) 1 Nucleated Red Blood 0.0 Cells % Immature 0.010 Granulocytes # Neutrophils # Lymphocytes (Manual) 1.2 Lymphocytes # Reactive Lymphocytes 0.0 # Monocytes # Monocytes # (Manual) 0.1 L Eosinophils # Basophils # Basophils # (Manual) 0.0 Nucleated Red Blood Cells # Pathologist YES Review (Hematology) Platelet Estimate DECREASED Polychromasia 3+ Hypochromasia 1+ Poikilocytosis 1+ Anisocytosis 2+ Macrocytosis 2+ Prothrombin Time 17.2 H Prothrombin Time 1.3 Ratio INR International 1.39 Normalized Ratio Activated 39.2 H Partial Thromboplast Time Sodium Level 142 142 Potassium Level 3.5 3.3 L Chloride Level 107 111 H Carbon Dioxide Level 24 21 Anion Gap 11 10 Blood Urea Nitrogen 8 7 Creatinine 0.59 L 0.49 L Est Glomerular > 60 > 60 Filtrat Rate mL/min Glucose Level 98 94 Calcium Level 8.5 7.6 L Total Bilirubin 1.1 1.0 Direct Bilirubin 0.00 0.00 Indirect Bilirubin 1.1 1.0 Aspartate Amino 160 H 150 H Transf (AST/SGOT) Alanine 42 36 Aminotransferase (AL T/SGPT) Alkaline Phosphatase 311 H 299 H Troponin I < 0.012 Total Protein 8.2 H 7.4 Albumin 3.4 3.0 L Globulin 4.80 H 4.40 H Albumin/Globulin 0.70 0.68 Ratio POC Venous Lactate 1.6 Lactic Acid Level 1.6 Fibrinogen 153.0 L Plasma Fibrin <10 Degradation Products D-Dimer 1130.83 H D-Dimer Comment Lipase 273 Test 06/20/18 00:20 06/20/18 02:00 06/20/18 06:53 Urine Color STRAW Urine Clarity CLEAR Urine pH 7.0 Urine Specific 1.004 [place] Urine Ketones NEGATIVE Urine Nitrite NEGATIVE Urine Bilirubin NEGATIVE Urine Urobilinogen NEGATIVE Urine Leukocyte NEGATIVE Esterase Urine Microscopic 1 RBC Urine Microscopic 0 WBC Urine Hemoglobin 1+ H Urine Glucose NEGATIVE Urine Total Protein NEGATIVE Lactic Acid Level 1.9 White Blood Count 2.7 L Red Blood Count 3.24 L Hemoglobin 10.1 L Hematocrit 30.4 L Mean Corpuscular 93.8 Volume Mean Corpuscular 31.2 Hemoglobin Mean Corpuscular 33.2 Hemoglobin Concent Red Cell 17.6 H Distribution Width Platelet Count 17 *L Mean Platelet Volume Immature 0.400 Granulocytes % Neutrophils % 48.4 Lymphocytes % 33.7 Monocytes % 12.6 H Eosinophils % 3.4 Basophils % 1.5 Nucleated Red Blood 0.0 Cells % Immature 0.010 Granulocytes # Neutrophils # 1.3 L Lymphocytes # 0.9 Monocytes # 0.3 Eosinophils # 0.1 Basophils # 0.0 Nucleated Red Blood 0.0 Cells # Sodium Level 141 Potassium Level 3.2 L Chloride Level 107 Carbon Dioxide Level 22 Anion Gap 12 Blood Urea Nitrogen 5 L Creatinine 0.40 L Est Glomerular > 60 Filtrat Rate mL/min Glucose Level 98 Calcium Level 7.7 L Magnesium Level 1.3 L Total Bilirubin 2.2 H Direct Bilirubin 0.20 # Indirect Bilirubin 2.0 H Aspartate Amino 150 H Transf (AST/SGOT) Alanine 28 Aminotransferase (AL T/SGPT) Alkaline Phosphatase 310 H Total Protein 8.0 Albumin 3.3 Globulin 4.70 H Albumin/Globulin 0.70 Ratio Triglycerides Level 124 Cholesterol Level 163 LDL Cholesterol, 96 Calculated HDL Cholesterol 42 Cholesterol/HDL 3.8 Ratio Medications Medication Current Medications IV Flush (NS 3 ml) 3 ml PER PROTOCOL IV ; Start 06/19/18 at 23:30 Ondansetron HCl (Zofran Inj) 4 mg Q6H PRN IV NAUSEA/VOMITING; Start 06/19/18 at 23:30 Pantoprazole (Protonix Iv) 40 mg DAILY@0600,1800 IV Last administered on 06/20/18at 06:21; Admin Dose 40 MG; Start 06/20/18 at 06:00 Acetaminophen (Tylenol Tab) 500 mg Q4H PRN PO MILD PAIN(1-3)OR ELEVATED TEMP Last administered on 06/20/18at 06:24; Admin Dose 500 MG; Start 06/19/18 at 23:30 Acetaminophen/ Hydrocodone Bitart ([place] (5/325)) 1 tab Q4H PRN PO PAIN LEVEL 1-5; Start 06/20/18 at 07:30 Acetaminophen/ Hydrocodone Bitart ([place] (5/325)) 2 tab Q4H PRN PO PAIN LEVEL 6-10; Start 06/20/18 at 07:30 CECILY LAKHANI MD Jun 20, 2018 14:41
[2018-06-20] MEDS ORDERED: FUROSEMIDE 40 MG TAB PO ONE (15:00)
[2018-06-20] MEDS ORDERED: OXYMETAZOLINE 0.05% 15 ML NAS SPRAY NASAL SCH (15:00)
[2018-06-20] MEDS: THIAMINE 100 MG TAB PO SCH (15:43)
[2018-06-20] MEDS ORDERED: MAGNESIUM SULFATE 3 GM in DEXTROSE 5% 100 ML IVPB ONE (16:00)
[2018-06-20] MEDS: OXYMETAZOLINE 0.05% 15 ML NAS SPRAY NASAL SCH (21:04)
[2018-06-20] MEDS: NADOLOL 40 MG TAB PO SCH (21:15)
[2018-06-20] MEDS ORDERED: POTASSIUM CHLORIDE (SR) 20 MEQ TAB PO STA (22:14)
[2018-06-21] VITALS (7 sets, daily range): BP systolic 94–110; BP diastolic 56–76; PULSE 65–73; RESP 18–20
[2018-06-21] MEDS ORDERED: PANTOPRAZOLE (EC) 40 MG TAB PO SCH (06:00)
[2018-06-21] MEDS: OXYMETAZOLINE 0.05% 15 ML NAS SPRAY NASAL SCH (09:00)
[2018-06-21] MEDS ORDERED: SPIRONOLACTONE 25 MG TAB PO SCH (09:00)
[2018-06-21] MEDS: NADOLOL 40 MG TAB PO SCH (09:42)
[2018-06-21] MEDS: THIAMINE 100 MG TAB PO SCH (09:42)
[2018-06-21] MEDS ORDERED: SPIR50TA PO (14:25)
[2018-06-21] MEDS ORDERED: FURO20TA3 PO (14:25)
[2018-06-21] MEDS ORDERED: Work Note (14:27)
--- NOTE | 2018-06-21 14:34 | PDOCDIS ---
Discharge Instructions CONDITION [id number] Patient Condition: [id number] Stable HOME CARE INSTRUCTIONS: [id number] Diet Instructions: [id number] [facility] Office Address: [address] [facility] [address] [place], [place] [id number] Office OTHER ORDERS: Other Orders: 1. Take a low sodium diet. 2. Take medications as per prescription. 3. Abstain from using alcohol. 4. Resume activities as tolerated. 5. Please follow-up with your primary care physician in 2 weeks. If you do not have a primary care physician, please call Dr. Andres Natarajan's office. 6. Please go to the nearest emergency room if you have any significant bleeding from the nose, significant blood in urine, or stool. MICHAEL MURPHY NP Jun 21, 2018 14:34
--- NOTE | 2018-06-21 18:42 | DS ---
Date/Time of Note Date/Time of Note DATE: 06/21/18 TIME: 18:42 Discharge Summary Admission/Discharge Info Admit Date/Time Jun 19, 2018 at 21:38 Discharge Date/Time Jun 21, 2018 at 15:53 Discharge Diagnosis 1. Epistaxis. 2. Coagulopathy. 3. Alcoholic liver cirrhosis. 4. Transaminitis with hyperbilirubinemia. Patient Condition: Stable Procedures Abdominal Ultrasound IMPRESSION: No ascites Hx of Present Illness This is a 58-year-old male with past medical history of alcoholic liver cirrhosis and pancytopenia who came to the emergency room with chief complaint of nosebleed and chills. The patient was noticed to have significant thrombocytopenia with a platelet count of 17. The patient also had a low-grade fever of 100 F in the emergency room. Therefore, the patient was admitted to inpatient setting. Hospital Course The patient's epistaxis resolved with correction of his underlying thrombocytopenia. The patient has underlying coagulopathy and pancytopenia secondary to underlying alcoholic liver cirrhosis. The patient received 1 unit of plateletpheresis transfusion during this admission. The patient has underlying chronic liver cirrhosis as mentioned before. The patient was started on diuretic therapy. As per the patient, he has been sober for the past few months. As far as the patient is a low-grade fever was concerned, the patient's cultures remained negative. The patient underwent an abdominal ultrasound for evaluation of any ascites and for possible paracentesis. However, the patient's abdominal ultrasound was negative for any ascites. The patient had a stable hospital course. The patient is stable to be discharged home. Discharge Instructions 1. Take a low sodium diet. 2. Take medications as per prescription. 3. Abstain from using alcohol. 4. Resume activities as tolerated. 5. Please follow-up with your primary care physician in 2 weeks. If you do not have a primary care physician, please call Dr. Andres Natarajan's office. 6. Please go to the nearest emergency room if you have any significant bleeding from the nose, significant blood in urine, or stool. The patient verbalized understanding of his discharge instructions. The patient was seen in collaboration with Dr. Issa. [place] [facility] Active Scripts [Work Note] No Conflict Check This is to certify that this patient was admitted to [facility] from 06/19/2018 to 06/21/2018. He can return back to work on 06/28/2018 with no restrictions. Prov:MICHAEL MURPHY SENIOR BUSINESS BROKER 06/21/18 Spironolactone* (Aldactone*) 50 Mg Tablet, 50 MG PO DAILY, #30 TAB Prov:MICHAEL MURPHY SENIOR BUSINESS BROKER 06/21/18 Furosemide* (Furosemide*) 20 Mg Tablet, 20 MG PO DAILY, #30 TAB Prov:MICHAEL MURPHY SENIOR BUSINESS BROKER 06/21/18 Discontinued Reported Medications Ibuprofen* (Ibuprofen*) 200 Mg Capsule, 200 MG PO QID PRN for PAIN, CAP 04/28/18 Discontinued Scripts Methocarbamol* (Robaxin*) 750 Mg Tablet, 750 MG PO TID PRN for MUSCLE SPASMS, #30 TAB Prov:SARA ALBRECHT DO 05/13/18 Ibuprofen* (Motrin*) 600 Mg Tab, 600 MG PO Q6H PRN for PAIN AND OR ELEVATED TEMP, #30 TAB Prov:SARA ALBRECHT DO 05/13/18 Acetaminophen* (Acetaminophen*) 500 MG Extra Strength Tablet, 500 MG PO Q4H PRN for PAIN AND OR ELEVATED TEMP, #30 TAB Prov:SARA ALBRECHT DO 05/13/18 Hydrocodone/Acetaminophen ([place] 10-325 Tablet) 1 Each Tablet, 1 TAB PO Q6H PRN for PAIN, #7 TAB Prov:SUSHMA FAROOQSTCAREYS Maldonado DO 04/28/18 Ibuprofen* (Motrin*) 800 Mg Tab, 800 MG PO Q6H PRN for PAIN AND OR ELEVATED TEMP, #30 TAB Prov:LEMALIKAOSAPOSTOLOS A. DO 04/28/18 Follow-up Plan Andres Natarajan MD Specialty: Internal Medicine Office Address: [address] [place] [address] Office Primary Care Provider Not On Staff Doctor Time spent on discharge: > 30 minutes Pending Labs Laboratory Tests Test 06/21/18 05:57 06/21/18 08:38 White Blood Count 3.7 10^3/ul (4.8-10.8) Red Blood Count 3.47 10^6/ul (4.70-6.10) Hemoglobin 11.1 g/dl (14.0-18.0) Hematocrit 32.1 % (42.0-52.0) Mean Corpuscular Volume 92.5 fl (82.0-101.0) Mean Corpuscular Hemoglobin 32.0 pg (29.0-33.0) Mean Corpuscular 34.6 g/dl (32.0-37.0) Hemoglobin Concent Red Cell Distribution Width 17.3 % (11.5-14.5) Platelet Count 41 10^3/UL (140-415) Mean Platelet Volume 11.2 fl (7.4-10.4) Immature Granulocytes % 0.000 % (0.001-0.429) Neutrophils % 51.2 % (39.0-77.0) Lymphocytes % 28.5 % (15.0-51.0) Monocytes % 12.6 % (0.0-11.0) Eosinophils % 5.5 % (0.0-7.0) Basophils % 2.2 % (0.0-2.0) Nucleated Red Blood Cells % 0.8 /100WBC (0.0-0.0) Immature Granulocytes # 0.000 10^3/ul (0.0-0.031) Neutrophils # 1.9 10^3/ul (1.6-7.5) Lymphocytes # 1.0 10^3/ul (0.8-2.9) Monocytes # 0.5 10^3/ul (0.3-0.9) Eosinophils # 0.2 10^3/ul (0.0-0.5) Basophils # 0.1 10^3/ul (0.0-0.1) Nucleated Red Blood Cells # 0.0 10^3/ul (0.0-0.0) Prothrombin Time 19.2 Sec (11.9-14.9) Prothrombin Time Ratio 1.5 INR International Normalized Ratio 1.61 Sodium Level 137 mmol/L (135-144) Potassium Level 3.7 mmol/L (3.5-5.1) Chloride Level 102 mmol/L (97-110) Carbon Dioxide Level 24 mmol/L (21-31) Anion Gap 11 (5-13) Blood Urea Nitrogen 11 mg/dl (7-20) Creatinine 0.51 mg/dl (0.61-1.24) Est Glomerular Filtrat Rate mL/min > 60 mL/min (>60) Glucose Level 110 mg/dl (70-220) Hemoglobin A1c 4.6 % (0-5.9) Calcium Level 8.5 mg/dl (8.4-10.2) Phosphorus Level 3.7 mg/dl (2.5-4.9) Magnesium Level 1.9 mg/dl (1.7-2.5) Total Bilirubin 3.3 mg/dl (0.2-1.3) Direct Bilirubin 0.70 mg/dl (0.00-0.20) Indirect Bilirubin 2.6 mg/dl (0-1.1) Aspartate Amino Transf (AST/SGOT) 123 IU/L (15-46) Alanine 34 IU/L (13-69) Aminotransferase (ALT/SGPT) Alkaline Phosphatase 283 IU/L (42-121) Total Protein 8.3 g/dl (6.1-8.1) Albumin 3.4 g/dl (3.3-4.9) Globulin 4.90 g/dl (1.3-3.2) Albumin/Globulin Ratio 0.69 Alpha Fetoprotein 4.29 IU/L (0.00-7.21) Thyroid Stimulating Hormone (TSH) 2.520 MIU/L (0.465-4.680) Hepatitis B Surface Antigen NEGATIVE (NEGATIVE) Hepatitis B Core Total Antibody REACTIVE (NEGATIVE) Hepatitis C Antibody NEGATIVE (NEGATIVE) Lab Scanned Report BLOOD TRANSFUSION MICHAEL MURPHY SENIOR BUSINESS BROKER Jun 21, 2018 18:42
== END 2018-06-21 15:53 | disposition home or self-care (01) | DRG 809 ==
LOC: FTE 17:29 → TEL 21:38
PROVIDERS: ADMIT Internal Medicine; ATTEND Internal Medicine
PROC: 30233R1 Transfusion of Nonautologous Platelets into Peripheral Vein, Percutaneous Approach (ICD-10-PCS; principal; 2018-06-20)
DX: D61.818 Other pancytopenia (principal); D68.4 Acquired coagulation factor deficiency; K70.30 Alcoholic cirrhosis of liver without ascites; R04.0 Epistaxis; E80.6 Other disorders of bilirubin metabolism; M54.5 Low back pain; R10.9 Unspecified abdominal pain; R74.0 Nonspecific elevation of levels of transaminase and lactic acid dehydrogenase [LDH]; R50.9 Fever, unspecified
CPT/HCPCS: 36415; 36430; 71045; 76705; 80053; 80061; 81001; 82105; 83036; 83605; 83690; 83735; 84100; 84443; 84484; 85025; 85362; 85378; 85384; 85610; 85730; 86704; 86709; 86803; 86850; 86900; 86901; 87086; 87340; 87400; 93005; C9113; J0692; J3370; J3475; J7030; J7040; P9035

== ENCOUNTER 2018-09-30 10:47 | Emergency (ER) | payer MEDICAID ==
[~2018-09-30] VITALS: Ht 160 cm; Wt 58.5 kg
[~2018-09-30 10:47] MED LIST changes: -ACET-141 PO; +BEN50 PO; -HYDR-3980 PO; -IBUP-1542 PO; -IBUP-1982 PO; -IBUP800T48 PO; -METH750T93 PO; +POLY17PO6 PO
[2018-09-30 11:02] VITALS: BP 125/67; PULSE 98; RESP 24; Ht 160 cm; Wt 58.5 kg
--- NOTE | 2018-09-30 11:33 | ERD ---
ER Documentation Chief Complaint Chief Complaint bodily itchiness started last night HPI 58-year-old male who presents with itchiness that began last night. He has a history of cirrhosis and alcohol abuse and was seen here yesterday for ascites. Denies taking any new medications. No confusion. No chest pain or p alpitations. No rash. ROS All systems reviewed and are negative except as per history of present illness. Medications Home Meds Active Scripts Diphenhydramine Hcl* (Benadryl*) 50 Mg Cap, 50 MG PO Q6 PRN for ITCHING, #30 CAP Prov:BARBI YANES PA-C 09/30/18 Discontinued Scripts [Work Note] No Conflict Check This is to certify that this patient was admitted to [facility] from 06/19/2018 to 06/21/2018. He can return back to work on 06/28/2018 with no restrictions. Prov:MICHAEL MURPHY NP 06/21/18 Spironolactone* (Aldactone*) 50 Mg Tablet, 50 MG PO DAILY, #30 TAB Prov:MICHAEL MURPHY NP 06/21/18 Furosemide* (Furosemide*) 20 Mg Tablet, 20 MG PO DAILY, #30 TAB Prov:MICHAEL MURPHY ALL PURPOSE CLERK 06/21/18 Allergies Allergies: Coded Allergies: No Known Allergy (Unverified , 09/29/18) PMhx/Soc History of Surgery: Yes (hernia repair, right, left eye surgery) Anesthesia Reaction: No Hx Neurological Disorder: No Hx Respiratory Disorders: No Hx Cardiac Disorders: No Hx Psychiatric Problems: No Hx Miscellaneous Medical Probl: No Hx Alcohol Use: Yes (does not drink now) Hx Substance Use: No Hx Tobacco Use: Yes FmHx Family History: No diabetes Physical Exam Vitals Vital Signs Date Temp Pulse Resp B/P (MAP) Pulse Ox O2 O2 Flow FiO2 Time Delivery Rate 09/30/18 99.0 98 24 125/67 99 11:02 (86) Physical Exam INITIAL VITAL SIGNS: Reviewed by me GENERAL: Awake, alert and oriented x 4, well appearing, nontoxic, speaking in full sentences. No acute distress HEAD: Atraumatic NECK: Supple. No masses. Full range of motion. No meningismus. No midline tenderness. RESPIRATORY: Clear to auscultation bilaterally. Symmetric chest wall rise. No wheezing or rales. No accessory muscle use. CV: Regular rate and rhythm. No murmurs, rubs, or gallops. ABDOMEN: Soft, abdominal distention. Nontender. Negative [place]. Negative [place] point tenderness. No CVA tenderness bilaterally. No guarding. No rebound. SKIN: Warm and dry. No rash or petechiae. Neuro: Alert and orientated, normal mental status, speaks in full sentences, normal gait Procedures/MDM Patient is here with itchiness. I reviewed notes and labs from yesterday which were nonemergent. I reviewed the case with and we agree see of outpatient management. He is alert and oriented. No confusion. He was given a prescription for Benadryl. Patient counseled regarding my diagnostic impression and care plan. Prior to discharge all questions answered. Pt agrees with treatment plan and understands strict return precautions. Pt is instructed to follow up with primary care provider within 24-48 hours. Precautionary instructions provided including instructions to return to the ER if not improving or for any worsening or changing symptoms or concerns. Departure Diagnosis: Primary Impression: Generalized pruritus Condition: Stable Patient Instructions: Self-Care for Skin Rashes Additional Instructions: Call your primary care doctor TOMORROW for an appointment during the next 1-2 days.See the doctor sooner or return here if your condition worsens before your appointment time. BARBI YANES PA-C Sep 30, 2018 11:32
== END 2018-09-30 11:47 | disposition home or self-care (01) ==
LOC: FTE 10:47
DX: L29.8 Other pruritus (principal); Z87.891 Personal history of nicotine dependence
CPT/HCPCS: 99282

== ENCOUNTER 2018-10-24 15:22 | Emergency (ER) | payer MEDICAID, OTHER ==
[~2018-10-24] VITALS: Ht 152.4 cm; Wt 58.2 kg
[2018-10-24 15:36] VITALS: Ht 152.4 cm; Wt 58.2 kg
--- NOTE | 2018-10-24 16:47 | ERD ---
ER Documentation Chief Complaint Chief Complaint Ascites HPI This is a 58-year-old male who is here for a therapeutic paracentesis. The patient has liver cirrhosis and needs to have his abdomen drained he has done this many times in the past for therapeutic reasons he has no pain no fever no GI symptoms ROS All systems reviewed and are negative except as per history of present illness. Medications Home Meds Discontinued Scripts Diphenhydramine Hcl* (Benadryl*) 50 Mg Cap, 50 MG PO Q6 PRN for ITCHING, #30 CAP Prov:BARBI YANES PA-C 09/30/18 Allergies Allergies: Coded Allergies: No Known Allergy (Unverified , 10/24/18) PMhx/Soc History of Surgery: Yes (hernia repair, right, left eye surgery) Anesthesia Reaction: No Hx Neurological Disorder: No Hx Respiratory Disorders: No Hx Cardiac Disorders: No Hx Psychiatric Problems: No Hx Miscellaneous Medical Probl: No Hx Alcohol Use: Yes (does not drink now) Hx Substance Use: No Hx Tobacco Use: Yes Smoking Status: Light tobacco smoker FmHx Family History: No coronary disease Physical Exam Vitals Vital Signs Date Temp Pulse Resp B/P (MAP) Pulse Ox O2 O2 Flow FiO2 Time Delivery Rate 10/24/18 89 18 104/70 99 Room Air 16:00 (81) 10/24/18 97.5 91 18 115/75 99 15:36 (88) Physical Exam Const: Well-developed, well-nourished Head: Atraumatic, normocephalic Eyes: Normal Conjunctiva, PERRLA, EOMI, normal sclera, no nystagmus ENT: Normal External Ears, Nose and Mouth, moist mucus membranes. Neck: Full range of motion. No meningismus, no lymphadenopathy. Resp: Clear to auscultation bilaterally, no wheezing, rhonchi, rales Cardio: Regular rate and rhythm, no murmurs, S1 S2 present Abd: Soft, non tender x 4, diabetes. Normal bowel sounds, no guarding or rebound, no pulsitile abdominal masses or bruits Skin: No petechiae or rashes, no ecchymosis , no maculopapular rash Back: No midline or flank tenderness Ext: No cyanosis, or edema, FROM x 4, normal inspection, neurovascularly intact x 4 Neur: Awake and alert, STR 5/5 x 4, sensation intact x 4, no focal findings, cerebellum intact Psych: Normal Mood and Affect Result Diagram: 10/24/18 1603 Results 24 hrs Laboratory Tests Test 10/24/18 16:03 White Blood Count 4.7 10^3/ul Red Blood Count 2.26 10^6/ul Hemoglobin 8.7 g/dl Hematocrit 25.4 % Mean Corpuscular Volume 112.4 fl Mean Corpuscular Hemoglobin 38.5 pg Mean Corpuscular Hemoglobin Concent 34.3 g/dl Red Cell Distribution Width 15.4 % Platelet Count 53 10^3/UL Mean Platelet Volume 10.2 fl Immature Granulocytes % 1.100 % Neutrophils % % Lymphocytes % % Monocytes % % Eosinophils % % Basophils % % Nucleated Red Blood Cells % 0.0 /100WBC Immature Granulocytes # 0.050 10^3/ul Neutrophils # 10^3/ul Lymphocytes # 10^3/ul Monocytes # 10^3/ul Eosinophils # 10^3/ul Basophils # 10^3/ul Nucleated Red Blood Cells # 10^3/ul Prothrombin Time 19.7 Sec Prothrombin Time Ratio 1.5 INR International Normalized Ratio 1.66 Activated Partial Thromboplast Time 38.9 Sec Procedures/MDM Patient have a therapeutic paracentesis by interventional radiologist to be discharged home Departure Diagnosis: Primary Impression: Ascites Ascites type: other type Qualified Codes: R18.8 - Other ascites Condition: Stable DOMINIQUE FAROOQ DO Oct 24, 2018 16:47
[2018-10-24 18:41] VITALS: BP 106/76; PULSE 81; RESP 18
== END 2018-10-24 18:41 | disposition home or self-care (01) ==
LOC: E/R 15:22
DX: R18.8 Other ascites (principal); F17.210 Nicotine dependence, cigarettes, uncomplicated
CPT/HCPCS: 36415; 76705; 80053; 85025; 85610; 85730; Z7502

== ENCOUNTER 2018-11-20 18:50 | Emergency (ER) | payer OTHER ==
[~2018-11-20] VITALS: Ht 160 cm; Wt 59.3 kg
[~2018-11-20 18:50] MED LIST changes: -BEN50 PO; +FURO-109 PO; +FURO-110 PO; +IBUP800T48 PO; +SPIR100T4 PO
[2018-11-20 18:52] VITALS: Ht 160 cm; Wt 59.3 kg
[2018-11-20] MEDS ORDERED: ACETAMINOPHEN 500 MG TAB PO STA (19:19)
[2018-11-20] MEDS ORDERED: IBUPROFEN 800 MG TAB PO ONE (19:30)
[2018-11-20 23:38] VITALS: BP 114/65; PULSE 74; RESP 20
== END 2018-11-20 23:00 | disposition home or self-care (01) ==
LOC: FTE 18:50
DX: M79.89 Other specified soft tissue disorders (principal); Z87.891 Personal history of nicotine dependence
CPT/HCPCS: 80053; 85025; 93970; Z7502; Z7610

== ENCOUNTER 2019-01-03 13:36 | Emergency (ER) | payer OTHER ==
[~2019-01-03] VITALS: Ht 149.9 cm; Wt 60.4 kg
[2019-01-03 13:49] VITALS: BP 123/70; PULSE 94; RESP 16; Ht 149.9 cm; Wt 60.4 kg
== END 2019-01-03 16:49 | disposition home or self-care (01) ==
LOC: FTE 13:36
DX: K70.31 Alcoholic cirrhosis of liver with ascites (principal)
CPT/HCPCS: 36415; 80053; Z7502; 99283